=== PATIENT | female | born 2000 | race Asian ===

== ENCOUNTER 2023-01-02 13:22 | Emergency (ER) | payer OTHER ==
[~2023-01-02] VITALS: Ht 149.9 cm; Wt 70.5 kg
[2023-01-02 14:16] LABS: BASOPHILS % (AUTO) 0.5 % (0.0-2.0); EOSINOPHILS % (AUTO) 1.6 % (1.0-6.0); HEMATOCRIT 41.2 % (36-46); HEMOGLOBIN 13.9 g/dL (12.0-16.0); LYMPHOCYTES # (AUTO) 3.7 K/uL (1.0-4.8); LYMPHOCYTES % (AUTO) 41.3 % (22.0-44.0); MEAN CORPUSCULAR HEMOGLOBIN 29.3 pg (26.0-34.0); MEAN CORPUSCULAR HGB CONC 33.7 G/dL (31.0-37.0); MEAN CORPUSCULAR VOLUME 87 fL (80-100); MONOCYTES # (AUTO) 0.6 K/uL (0.1-1.0); MONOCYTES % (AUTO) 7.3 % (2.0-9.0); NEUTROPHILS # (AUTO) 4.4 K/uL (1.8-7.7); NEUTROPHILS % (AUTO) 49.3 % (40.0-70.0); PLATELET COUNT (AUTO) 305 K/uL (150-450); RED BLOOD CELL COUNT(AUTO) 4.74 MIL/uL (4.00-5.20)
[2023-01-02 14:26] LABS: ANION GAP 10 mmol/L (8-16); CALCIUM, TOTAL 9.2 mg/dL (8.8-10.5); CARBON DIOXIDE 26 mmol/L (22-29); CHLORIDE 102 mmol/L (98-107); CREATININE 0.73 mg/dL (0.60-1.30); GLOMERULAR FILTR. RATE CALC > 60 mL/min (>60); GLUCOSE,RANDOM 100 mg/dL (70-110); SODIUM SERUM 138 mmol/L (136-145); UREA NITROGEN, BLOOD 7 mg/dL (7-18)
[2023-01-02 14:32] LABS: ALANINE AMINOTRANSFERASE 26 U/L (12-78); ALBUMIN 4.2 g/dL (3.4-5.0); ALKALINE PHOSPHATASE 66 U/L (46-116); ASPARTATE AMINOTRANSFERASE 21 U/L (15-37); BILIRUBIN,TOTAL 0.5 mg/dL (0.1-1.0); LIPASE 58 U/L (73-393); TOTAL PROTEIN, SERUM 8.4 g/dL (6.4-8.2)
[2023-01-02 15:36] LABS: HCG,QUANTITATIVE < 1 mIU/mL (0-6)
[2023-01-02 15:52] LABS: APPEARANCE,URINE HAZY (CLEAR); BILIRUBIN,URINE NEGATIVE (NEGATIVE); GLUCOSE, URINE (UA) NEGATIVE (NEGATIVE); KETONES,URINE NEGATIVE (NEGATIVE); LEUKOCYTE ESTERASE ,URINE LARGE (NEGATIVE); NITRATE,URINE NEGATIVE (NEGATIVE); OCCULT BLOOD,URINE LARGE (NEGATIVE); PROTEIN,URINE NEGATIVE (NEGATIVE); SPECIFIC GRAVITIY, URINE 1.007 (1.003-1.030); UROBILINOGEN,URINE <=1.0 mg/dL (<=1.0)
[2023-01-02 16:07] LABS: BACTERIA,URINE Few /HPF (None Seen); SQUAMOUS EPITHELIAL CELL,UR Few /LPF (None Seen)
[2023-01-02] MEDS ORDERED: NITROFURANTOIN MONOHYD/M-CRYST 100 MG CAPSULE [MACROBID] PO ONE (16:30)
[2023-01-02] MEDS ORDERED: PHENAZOPYRIDINE HCL 100 MG TABLET PO ONE (16:30)
[2023-01-02 17:21] VITALS: BP 127/82
[2023-01-02] MEDS ORDERED: NITR-75 PO (17:22)
[2023-01-02] MEDS ORDERED: PHEN-674 PO (17:22)
== END 2023-01-02 17:25 | disposition home or self-care (01) ==
LOC: EMS 13:28
DX: N39.0 Urinary tract infection, site not specified (principal)
CPT/HCPCS: 80053; 81001; 83690; 84702; 85025; 87086; 87186; 99283

== ENCOUNTER 2023-05-13 18:53 | Emergency (ER) | payer OTHER ==
[~2023-05-13] VITALS: Ht 152.4 cm; Wt 0.8 kg
[~2023-05-13 18:53] MED LIST: NITR-75 PO; PHEN-674 PO
[2023-05-13 18:57] VITALS: BP 119/75; PULSE 80; RESP 20; TEMP 98.8
[2023-05-13 20:08] LABS: BASOPHILS % (AUTO) 0.3 % (0.0-2.0); EOSINOPHILS % (AUTO) 1.1 % (1.0-6.0); HEMATOCRIT 41.9 % (36-46); LYMPHOCYTES # (AUTO) 2.6 K/uL (1.0-4.8); MEAN CORPUSCULAR HEMOGLOBIN 28.7 pg (26.0-34.0); MEAN CORPUSCULAR HGB CONC 33.4 G/dL (31.0-37.0); MEAN CORPUSCULAR VOLUME 86 fL (80-100); MONOCYTES # (AUTO) 0.4 K/uL (0.1-1.0); MONOCYTES % (AUTO) 4.7 % (2.0-9.0); NEUTROPHILS # (AUTO) 6.1 K/uL (1.8-7.7); NEUTROPHILS % (AUTO) 65.9 % (40.0-70.0); PLATELET COUNT (AUTO) 309 K/uL (150-450); RED BLOOD CELL COUNT(AUTO) 4.89 MIL/uL (4.00-5.20); RED CELL DISTRIBUTION WIDTH 13.4 % (11.5-14.5)
[2023-05-13 20:20] LABS: ANION GAP 10 mmol/L (8-16); CALCIUM, TOTAL 9.2 mg/dL (8.8-10.5); CARBON DIOXIDE 27 mmol/L (22-29); CHLORIDE 99 mmol/L (98-107); CREATININE 0.81 mg/dL (0.60-1.30); GLOMERULAR FILTR. RATE CALC > 60 mL/min (>60); GLUCOSE,RANDOM 119 mg/dL (70-110); POTASSIUM 3.5 mmol/L (3.5-5.1); SODIUM SERUM 136 mmol/L (136-145)
[2023-05-13 20:26] LABS: ALANINE AMINOTRANSFERASE 16 U/L (12-78); ALBUMIN 4.1 g/dL (3.4-5.0); ALKALINE PHOSPHATASE 69 U/L (46-116); ASPARTATE AMINOTRANSFERASE 11 U/L (15-37); BILIRUBIN,TOTAL 0.3 mg/dL (0.1-1.0); TOTAL PROTEIN, SERUM 8.2 g/dL (6.4-8.2)
[2023-05-13 20:44] LABS: HCG,QUANTITATIVE < 1 mIU/mL (0-6)
[2023-05-13 21:52] LABS: APPEARANCE,URINE HAZY (CLEAR); BILIRUBIN,URINE NEGATIVE (NEGATIVE); GLUCOSE, URINE (UA) NEGATIVE (NEGATIVE); KETONES,URINE NEGATIVE (NEGATIVE); LEUKOCYTE ESTERASE ,URINE MODERATE (NEGATIVE); NITRATE,URINE NEGATIVE (NEGATIVE); OCCULT BLOOD,URINE LARGE (NEGATIVE); PH,URINE 5.5 (5.0-8.0); PROTEIN,URINE 30-70 mg/dL (NEGATIVE); SPECIFIC GRAVITIY, URINE 1.012 (1.003-1.030); UROBILINOGEN,URINE <=1.0 mg/dL (<=1.0)
[2023-05-13 22:05] LABS: SQUAMOUS EPITHELIAL CELL,UR Few /LPF (None Seen)
[2023-05-13 22:06] LABS: BACTERIA,URINE Few /HPF (None Seen)
[2023-05-13] MEDS ORDERED: CEPH-558 PO (22:44)
== END 2023-05-13 23:29 | disposition home or self-care (01) ==
LOC: EMS 19:01
DX: N39.0 Urinary tract infection, site not specified (principal)
CPT/HCPCS: 80053; 81001; 84702; 85025; 87086; 87186; 99283

== ENCOUNTER 2024-09-13 15:36 | Emergency (ER) | payer OTHER ==
[~2024-09-13] VITALS: Ht 149.9 cm; Wt 75.0 kg
[~2024-09-13 15:36] MED LIST changes: +CEPH-558 PO
[2024-09-13 15:57] LABS: COVID AG,FIA SOURCE NASAL SWAB
[2024-09-13 16:18] LABS: APPEARANCE,URINE HAZY (CLEAR); BILIRUBIN,URINE NEGATIVE (NEGATIVE); COLOR,URINE LIGHT YELLOW (YELLOW); GLUCOSE, URINE (UA) NEGATIVE (NEGATIVE); KETONES,URINE NEGATIVE (NEGATIVE); LEUKOCYTE ESTERASE ,URINE SMALL (NEGATIVE); NITRATE,URINE POSITIVE (NEGATIVE); OCCULT BLOOD,URINE NEGATIVE (NEGATIVE); PROTEIN,URINE NEGATIVE (NEGATIVE); SPECIFIC GRAVITIY, URINE 1.008 (1.003-1.030); UROBILINOGEN,URINE <=1.0 mg/dL (<=1.0)
[2024-09-13 16:26] LABS: INFLUENZA TYPE B NEGATIVE FOR TYPE B (NEGATIVE); SARS-COV2 (COVID) ANTIGEN,FIA Negative (Negative)
[2024-09-13 16:30] LABS: BACTERIA,URINE Many /HPF (None Seen); RBC,URINE 0-2 /HPF (0-2); SQUAMOUS EPITHELIAL CELL,UR Few /LPF (None Seen)
[2024-09-13 16:42] LABS: INFLUENZA TYPE A POSITIVE FOR TYPE A (NEGATIVE)
[2024-09-13] MEDS ORDERED: ACET-66 PO (16:55)
[2024-09-13] MEDS ORDERED: GUAIFDM PO (16:55)
[2024-09-13] MEDS ORDERED: IBUP-1554 PO (16:55)
[2024-09-13] MEDS ORDERED: CEPH-558 PO (16:55)
[2024-09-13] MEDS: GuaiFENesin/D-METHORPHAN [SUGAR-FREE] 200-20MG/10 ML SYRUP UDCUP PO ONE (17:13)
[2024-09-13] MEDS: IBUPROFEN 600 MG TABLET PO ONE (17:13)
[2024-09-13] MEDS: ACETAMINOPHEN 500 MG TABLET PO ONE (17:14)
[2024-09-13 17:17] VITALS: BP 105/63; PULSE 92; RESP 18; TEMP 98.9; O2SAT 99
== END 2024-09-13 17:31 | disposition home or self-care (01) ==
LOC: EMS 15:36
DX: N39.0 Urinary tract infection, site not specified (principal); J10.1 Influenza due to other identified influenza virus with other respiratory manifestations; Z87.440 Personal history of urinary (tract) infections; Z20.822 Contact with and (suspected) exposure to COVID-19
CPT/HCPCS: 81001; 87077; 87086; 87186; 87804; 99284; Z7502; Z7610

== ENCOUNTER 2025-02-09 21:15 | Emergency (ER) | payer OTHER ==
[~2025-02-09] VITALS: Ht 149.9 cm; Wt 75.0 kg
[~2025-02-09 21:15] MED LIST changes: +ACET-66 PO; +GUAIFDM PO; +IBUP-1554 PO; -NITR-75 PO; -PHEN-674 PO
[2025-02-09 21:27] VITALS: TEMP 98.2
[2025-02-09] MEDS ORDERED: SENN-376 PO (23:44)
[2025-02-09] MEDS ORDERED: POLY119P3 PO (23:44)
[2025-02-10] MEDS: POLYETHYLENE GLYCOL 3350 17 GM PACKET PO ONE (00:04)
[2025-02-10] MEDS: SENNOSIDES 8.6 MG TABLET PO ONE (00:04)
[2025-02-10 00:08] VITALS: BP 113/73; PULSE 72; RESP 18; O2SAT 100
== END 2025-02-10 00:10 | disposition home or self-care (01) ==
LOC: EMS 21:15
DX: K59.00 Constipation, unspecified (principal); Z87.440 Personal history of urinary (tract) infections; Z79.899 Other long term (current) drug therapy
CPT/HCPCS: 99283